=== PATIENT | female | born 1940 | race Caucasian/White ===

== ENCOUNTER → 2017-01-26 | Outpatient (CLI) | payer MEDICARE, OTHER ==
--- NOTE | 2017-01-26 16:16 | KCIC ---
PROCEDURE Coronary artery calcium score HISTORY Calcium screening. TECHNIQUE High resolution, computed tomography of the heart was performed with ECG gating and suspended respiration using the Siemens HeartView CT. No contrast material was administered. Post processing was performed on the 3-D computer workstation using diastolic phase images to measure the amount of coronary vascular calcium. Scoring was performed utilizing the Agaston Method. FINDINGS Thorax:No significant abnormality is identified in the lungs or mediastinum. Note that this CT exam is limited to the heart and adjacent structures. Coronary arteries:CALCIUM IS PRESENT. TOTAL AGASTON CALCIUM SCORE = 70.6] Calcium is detected in the coronary circulation and confirms the presence of atherosclerotic plaque. The score is derived for separate scores of LAD 70.6, LCx 0, left main 0, RCA 0. The presence of coronary calcium confirms the presence of atherosclerotic plaque. The greater the amount of coronary calcium, the greater the likelihood of stenotic or occlusive coronary artery disease. However, there is not a one-to-one relationship, and findings may not be site specific. The total amount of calcium correlates best with the total amount of atherosclerotic plaque, although the true "plaque burden" may be underestimated by calcium score. MINIMAL coronary atherosclerosis is present. Individuals in this score range typically have mild to moderate luminal irregularity at coronary angiography. There is LOW RISK of cardiovascular event based on this test. IMPRESSION: 1. Coronary atherosclerosis is present, mild amount. 2. Low risk of cardiovascular event. RECOMMENDATIONS 1. Further evaluation and prevention strategies should be based on global assessment of cardiovascular risk factors in addition to the results of this test. 2. Aggressive reduction of modifiable cardiovascular risk factors should be considered. Additional supporting information concerning the findings and recommendation contained within this report can be found in the consensus statements on coronary vascular calcium published by the [place] [employer] and [place] [employer] 5 Conference (Circulation 1996; 94: 2458-3644; J Am Baldo Cardiol 2000; 36: 326-340 and Circulation 2000; 101: 111-116). PQRS STATEMENT One or more of the following individualized dose reduction techniques were utilized for this study: 1.Automated exposure control 2.Adjustment of the mA and/or kV according to patient size 3.Use of iterative reconstruction technique Electronically signed by: Amadeo Diez (Jan 26, 2017 16:14:03)
--- NOTE | 2017-01-26 16:30 | KCIC ---
PROCEDURE Bone density. HISTORY Osteopenia, postmenopausal. Chemotherapy. COMPARISON Left bone density 08/12/2014. FINDINGS Dual photon densitometry of the lumbar spine and left proximal femur is performed. Bone mineral density values are measured in grams per cm2. Lumbar spine, L1-L4, total bone mineral density 1.115, T-score 0.6, Z-score 3.0. Compared to prior study there has been a 4.3 percent decrease in the bone mineral density. The left total femur bone mineral density 0.739, T-score -1.7, Z-score 0.1. Compared to prior study there has been a 6.8 percent decrease in the bone mineral density. World Health Organization criteria for bone mineral density interpretation classify patient's as normal (T-score at or above -1.0), osteopenic (T-score between -1 and -2.5), or osteoporotic (T-score at or below -2.5). IMPRESSION There is normal bone mineral density of the lumbar spine and osteopenia of the left femur. Bone mineral density has decreased from prior study. Electronically signed by: Ibrahima Vitale MD (Jan 26, 2017 16:29:15)
--- NOTE | 2017-01-26 16:54 | KCIC ---
PROCEDURE Bilateral three-view hand HISTORY Arthritis in both hands. COMPARISON None FINDINGS Left hand Bone demineralization. Osteoarthritis identified, greatest at the triscaphe, 1st carpometacarpal joint and IP joints. No aggressive bone destruction, erosion or acute fracture. There is a chronic appearing ossicle posterior to the radiocarpal joint, seen on the lateral view. Right hand Bone demineralization. Primary osteoarthritis, greatest at the triscaphe, 1st carpometacarpal joint and IP joints. There are some central erosive type changes at the DIP joints, greatest at the 2nd and 3rd DIP joints, with marginal osteophytes, suggesting erosive (inflammatory) osteoarthritis. No acute fracture. There is a chronic appearing ossicle adjacent to the 1st carpometacarpal joint. 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 Note that the appearance the 2nd and 3rd right DIP joints in particular suggests erosive(inflammatory) type of osteoarthritis. Electronically signed by: Avelino Kinsey MD (Jan 26, 2017 16:52:41)
== END | disposition home or self-care (01) ==
LOC: KCIC DEXA 11:47
PROVIDERS: ATTEND Family Medicine
DX: Z13.6 Encounter for screening for cardiovascular disorders (principal); M13.842 Other specified arthritis, left hand; M13.841 Other specified arthritis, right hand; I25.10 Atherosclerotic heart disease of native coronary artery without angina pectoris; M85.88 Other specified disorders of bone density and structure, other site
CPT/HCPCS: 73130; 75571; 77080

== ENCOUNTER → 2017-07-17 | Outpatient (CLI) | payer MEDICARE, OTHER ==
--- NOTE | 2017-07-17 15:25 | KCIC ---
Indication: Fall with right wrist injury and pain. Time of exam 3:10 PM 3 views of the right wrist were obtained. There is generalized demineralization. The distal radius and ulna are intact. There is significant triscaphe and first CMC joint degenerative change with joint space narrowing, sclerosis and marginal osteophyte formation. The metacarpals are intact. No fractures are seen. IMPRESSION: Chronic changes. No acute bony abnormality is detected. Electronically signed by: Kenny Sy MD (07/17/2017 3:22 PM) [id number]
== END | disposition home or self-care (01) ==
LOC: KCIC 15:08
PROVIDERS: ATTEND Nurse Practitioner Family
DX: S69.91XA Unspecified injury of right wrist, hand and finger(s), initial encounter (principal); X58.XXXA Exposure to other specified factors, initial encounter; Y93.89 Activity, other specified; Y92.89 Other specified places as the place of occurrence of the external cause; Y99.8 Other external cause status
CPT/HCPCS: 73110

== ENCOUNTER → 2019-05-07 | Outpatient (CLI) | payer MEDICARE, OTHER ==
--- NOTE | 2019-05-07 17:18 | KCIC ---
Indication: Postmenopausal screening for osteoporosis. Follow-up study. COMPARISON: January 26, 2017. Bone Density: -BMD: (g/cm2) - AP Spine Total (L1-L4).......... 1.163. - Total left Hip................. 0.735. T-Score: - AP Spine Total (L1-L4)......... 1.1. - Total left Hip................. -1.7. Z-Score: - AP Spine Total (L1-L4).......... 3.6. - Total left Hip................. 0.2. World Health Organization criteria for BMD interpretation classify patients as Normal (T-score at or above -1.0), Osteopenic (T-score between -1.0 and -2.5), or Osteoporotic (T-score at or below -2.5). Impression: 1. AP Spine Total L1-L4--- normal. Since the previous examination, there has been an increase of approximately 4%.. 2. Total left Hip--- osteopenia. Since the prior study, there has been a decrease of approximately 1%. Electronically signed by: Pancho Olguin MD (05/07/2019 5:15 PM) [facility]
== END | disposition home or self-care (01) ==
LOC: KCIC DEXA 15:32
PROVIDERS: ATTEND Family Medicine
DX: M85.88 Other specified disorders of bone density and structure, other site (principal); Z78.0 Asymptomatic menopausal state
CPT/HCPCS: 77080

== ENCOUNTER → 2021-10-25 | Outpatient (CLI) | payer MEDICARE ==
--- NOTE | 2021-10-25 14:40 | KCIC ---
EXAM: Right humerus, 2 views. HISTORY: Pain. COMPARISON: None. FINDINGS: 2 views of the right humerus are obtained. There is no acute fracture, dislocation or sublu xation. There is mild degenerative spurring involving the radial head. There is benign osseous proces s along the distal humeral epicondyles. There is moderate acromioclavicular and glenohumeral joint sp urring. IMPRESSION: 1. Moderate acromioclavicular and glenohumeral joint osteoarthritis. 2. Mild elbow osteoarthritis. 3. No acute osseous finding. Electronically signed by: Giselle Bui MD (10/25/2021 2:37 PM) [id number]
== END ==
LOC: KCIC 14:20
PROVIDERS: ATTEND Family Medicine
DX: M19.011 Primary osteoarthritis, right shoulder (principal); M19.021 Primary osteoarthritis, right elbow; M75.81 Other shoulder lesions, right shoulder
CPT/HCPCS: 73060